=== PATIENT | male | born 1985 | race Caucasian/White ===

== ENCOUNTER 2024-08-18 12:52 | Outpatient (CLI) | payer BC, SELFPAY | END 2024-08-18 12:53 | disposition home or self-care (01) | PROVIDERS: PCP Family Medicine; Visit Provider Family Medicine | DX: Z12.5 Encounter for screening for malignant neoplasm of prostate (principal); Z80.0 Family history of malignant neoplasm of digestive organs | CPT/HCPCS: G0103 ==